=== PATIENT | male | born 1980 | race Hispanic/Latino ===

== ENCOUNTER 2021-04-05 10:00 | Day surgery (SDC) | payer OTHER ==
[2021-04-03 13:10] VITALS: BP 132/69
[2021-04-03 13:27] LABS: BASOPHILS % (AUTO) 0.3 % (0.0-5.0); EOSINOPHILS % (AUTO) 1.4 % (0.0-8.0); HEMATOCRIT 43.6 % (42-54); LYMPHOCYTES % (AUTO) 31.1 % (21.0-51.0); MEAN CORPUSCULAR HEMOGLOBIN 30.1 pg (27.0-33.0); MEAN CORPUSCULAR HGB CONC 33.7 g/dL (32.0-36.0); MEAN CORPUSCULAR VOLUME 89.3 fL (79-99); MONOCYTES % (AUTO) 3.7 % (3.0-13.0); PLATELET COUNT (AUTO) 305 K/uL (130-400); RED BLOOD CELL COUNT(AUTO) 4.88 MIL/uL (4.50-6.20); RED CELL DISTRIBUTION WIDTH 12.6 % (11.0-15.5); WHITE BLOOD COUNT (AUTO) 6.5 K/uL (4.8-10.8)
[2021-04-03 13:38] LABS: INR 1.01 (0.85-1.15)
[2021-04-03 13:39] LABS: PARTIAL THROMBOPLASTIN TIME 29.2 SEC (26.3-35.5)
[2021-04-03 13:41] LABS: ALBUMIN 4.3 g/dL (3.5-5.0); BILIRUBIN,TOTAL 0.4 mg/dL (0.2-1.0); TOTAL PROTEIN, SERUM 7.8 g/dL (6.0-8.3)
[~2021-04-05] VITALS: Ht 182.9 cm; Wt 98.2 kg
[2021-04-05] VITALS (13 sets, daily range): BP systolic 124–163; BP diastolic 70–98
[~2021-04-05 10:00] MED LIST: CEFAZOLIN SODIUM 1 GM VIAL IVP SCH; MIRT-93 PO; OLAN15TA36 PO; PREG300C PO; VALB80CA PO
[2021-04-05] MEDS ORDERED: LACTATED RINGERS 1000ML 1,000 ML IV ONE (10:23)
[2021-04-05] MEDS ORDERED: MIDAZOLAM HCL 1 MG/ML 2ML VIAL ONE (12:14)
[2021-04-05] MEDS ORDERED: PROPOFOL 10 MG/ML 20ML VIAL IV ONE (12:15)
[2021-04-05] MEDS ORDERED: FENTANYL CITRATE PF 50 MCG/1 ML 2ML VIAL ONE ×2 (12:15→16:09)
[2021-04-05] MEDS ORDERED: ONDANSETRON 4MG INJ ONE (12:15)
[2021-04-05] MEDS ORDERED: ROCURONIUM 10MG/1ML SYR 10 MG/ML ML ONE ×2 (12:21→14:12)
[2021-04-05] MEDS ORDERED: DEXAMETHASONE SOD PHOSPHATE 10MG/ML 1ML VIAL ONE (12:36)
[2021-04-05] MEDS ORDERED: LIDOCAINE 1%-EPI 1:100,000 20 ML VIAL IJ ONE (12:41)
[2021-04-05] MEDS ORDERED: OXYMETAZOLINE HCL SPRAY 15 ML BOTTLE ONE (12:45)
[2021-04-05] MEDS ORDERED: EPHEDRINE SULFATE 50 MG/ML AMPULE ONE (13:03)
[2021-04-05] MEDS ORDERED: GLYCOPYRROLATE 1 MG/5 ML SYRINGE ONE (14:24)
[2021-04-05] MEDS ORDERED: NEOSTIGMINE 5MG/5ML SYR IV ONE (14:25)
[2021-04-05] MEDS ORDERED: BACITRACIN 28.4 GM OINT TP ONE (16:50)
== END 2021-04-05 20:15 | disposition home or self-care (01) ==
LOC: DAH 10:00
PROVIDERS: ATTEND Otolaryngology Plastic Surgery within the Head & Neck
DX: J34.2 Deviated nasal septum (principal); J84.89 Other specified interstitial pulmonary diseases; J34.3 Hypertrophy of nasal turbinates; J34.89 Other specified disorders of nose and nasal sinuses; F17.200 Nicotine dependence, unspecified, uncomplicated; F31.9 Bipolar disorder, unspecified; Z79.01 Long term (current) use of anticoagulants; Z83.3 Family history of diabetes mellitus
CPT/HCPCS: 30420; 30930; 36415; 80053; 85025; 85610; 85730; 87635; A4215; A4221; A4222; A4223; A4315; A4600; A4649; A4663; A4930 ×2; A6260; C9803; J0690; J1100; J2250; J2405; J2704; J2710; J3010 ×2; J3490 ×3; J7120 ×2